=== PATIENT | female | born 1985 | race African-American/Black ===

== ENCOUNTER 2017-03-26 02:22 | Emergency (ER) | payer MEDICAID, OTHER ==
[~2017-03-26] VITALS: Ht 165.1 cm; Wt 55.0 kg
[~2017-03-26 02:22] MED LIST: PREN1TAB49
[2017-03-26] MEDS ORDERED: SODIUM CHLORIDE 0.9% 1,000 ML IV ONE (02:57)
[2017-03-26] MEDS ORDERED: LORAZEPAM 2MG/ML CPJ IV ONE (03:00)
[2017-03-26 03:23] LABS: HEMATOCRIT. 37.9 % (36.0-48.0); HEMOGLOBIN. 12.6 g/dL (12.0-16.0); MEAN CORPUSCULAR HEMOGLOBIN 29.1 pg (28.0-32.0); MEAN CORPUSCULAR VOLUME 87.7 fL (81.0-99.0); MEAN PLATELET VOLUME 8.5 fl (7.4-10.4); PLATELET 276 x1000/uL (130-400); RED BLOOD CELL COUNT 4.32 mill/uL (4.2-5.4); RED CELL DISTRIBUTION WIDTH 13.9 % (11.6-14.6)
[2017-03-26 03:30] LABS: CARBON DIOXIDE 21 mEq/L (21-32); CHLORIDE 110 mEq/L (98-107); ETHANOL BLOOD 91 mg/dL
[2017-03-26] MEDS ORDERED: POTASSIUM CHLORIDE 20MEQ TABLET SR PO ONE ×2 (03:45)
[2017-03-26 04:17] VITALS: BP 132/56
[2017-03-26 04:17] LABS: PLATELET ESTIMATE NORMAL
== END 2017-03-26 04:27 | disposition home or self-care (01) ==
LOC: ER 02:29
DX: T51.0X1A Toxic effect of ethanol, accidental (unintentional), initial encounter (principal); E87.6 Hypokalemia; J45.909 Unspecified asthma, uncomplicated; Z87.891 Personal history of nicotine dependence; Y92.89 Other specified places as the place of occurrence of the external cause
CPT/HCPCS: 36415; 80053; 85025; 93005; 96374; 99285; G0482; J2060; J7030; Z7610